=== PATIENT | male | born 1990 | race Hispanic/Latino ===

== ENCOUNTER 2020-09-10 13:18 | Emergency (ER) | payer OTHER ==
[~2020-09-10] VITALS: Ht 170.2 cm; Wt 96.1 kg
[2020-09-10] MEDS ORDERED: ALBU20IN (13:47)
[2020-09-10 15:56] VITALS: O2SAT 98
[2020-09-10 16:08] LABS: BASO # 0.1 10^3/uL (0.0-0.2); BASO % 0.7 % (0.0-1.0); EOS # 0.2 10^3/uL (0.0-0.5); EOS % 3.4 % (0.0-3.0); HEMATOCRIT 46.8 % (42.0-52.0); HEMOGLOBIN 16.5 g/dl (13.5-17.5); LYMPH # 2.5 10^3/uL (1.5-5.0); MEAN CORPUSCULAR HEMOGLOBIN 29.8 pg (27.0-33.0); MEAN CORPUSCULAR HGB CONC 35.3 g/dl (32.0-36.5); MEAN CORPUSCULAR VOLUME 84.6 fl (80.0-96.0); MONO # 0.4 10^3/uL (0.0-0.8); MONO % 6.1 % (2.0-8.0); NEUTROPHILS # 3.6 10^3/uL (1.5-8.5); NEUTROPHILS % 52.5 % (36.0-66.0); PLATELET COUNT, AUTOMATED 315 10^3/uL (150-450); RED BLOOD COUNT 5.53 10^6/uL (4.30-6.10); WHITE BLOOD COUNT 6.8 10^3/uL (4.0-10.0)
[2020-09-10] MEDS ORDERED: ISOVUE-370 76% 100ML VIAL As Ordered ONE (16:26)
[2020-09-10 16:38] LABS: C REACTIVE PROTEIN QUANTITATIV < 0.30 MG/DL (0.00-0.30); CK-MB VALUE MASS < 1.0 NG/ML (<3.6); CPK CREATINE PHOSPHOKINASE 456 U/L (39-308); MB/CK RELATIVE INDEX 0.22 (< OR =4); TROPONIN I < 0.02 NG/ML (< 0.10)
--- NOTE | 2020-09-10 16:50 | REP ---
INDICATION: SOB since covid apr 2020 COMPARISON: None. TECHNIQUE: Axial contrast enhanced images from the thoracic inlet to the upper abdomen using pulmonary embolus technique with multiplanar re-formations. 75 ml Isovue 370 intravenous contrast material administered without complication. This CT examination was performed using the following dose reduction techniques: Automated exposure control, adjustment of mA and/or kv according to the patient's size, and use of iterative reconstruction technique. FINDINGS: Satisfactory enhancement of the pulmonary vasculature is achieved and no filling defects are identified to suggest pulmonary embolus. Further evaluation of the mediastinum demonstrates normal thoracic aorta, heart and pericardium. The bilateral lung otero are well aerated and clear without consolidation pleural effusion or pneumothorax. Tracheobronchial tree is patent. No nodule or mass lesion is identified. No adenopathy noted. Surrounding musculoskeletal structures intact IMPRESSION: No evidence for pulmonary embolus. No acute mediastinal or pleural parenchymal process. <Electronically signed by Abdiel Smith > 09/10/20 [id number]
[2020-09-10 16:53] LABS: ERYTHROCYTE SEDIMENTATION RATE 1 mm/hr (0-15)
[2020-09-10 19:18] LABS: NT-PRO BNP 23 PG/ML (<125)
[2020-09-10 19:36] VITALS: BP 132/71
--- NOTE | 2020-09-11 05:47 | ECGEPIP ---
[facility] - ED Test Date: 2020-09-10 Pat Name: DAMARIS GAN Department: Room: - Gender: Male Tagman: HOLLY : 1990 Requested By: ALEXANDER Obregon PA-C Order Number: [id number] Reading MD: Joe Higgins Measurements Intervals [place] Rate: 82 P: 53 LA: 184 QRS: 61 QRSD: 96 T: 23 QT: 344 QTc: 401 Interpretive Statements Normal sinus rhythm with borderline 1st degree AV block POOR R WAVE PROGRESSION Incomplete right bundle branch block NONSPECIFIC T WAVE ABNORMALITY(S) NO PRIORS FOR COMPARISON Electronically Signed on 09-11-2020 5:46:55 EDT by Joe Higgins
== END 2020-09-10 19:38 | disposition home or self-care (01) ==
LOC: M ED 13:18
DX: R06.02 Shortness of breath (principal); R94.31 Abnormal electrocardiogram [ECG] [EKG]; I45.19 Other right bundle-branch block; Z86.16 Personal history of COVID-19; Z87.09 Personal history of other diseases of the respiratory system; Z87.891 Personal history of nicotine dependence
CPT/HCPCS: 36415; 71275; 80047; 82550; 82553; 83880; 84484; 85025; 85652; 86140; 93005; 99284; Q9967

== ENCOUNTER → 2020-11-19 | Outpatient (CLI) | payer OTHER ==
[~2020-11-19] MED LIST: ALBU20IN
--- NOTE | 2020-11-19 11:16 | PFTRPT ---
Height: 67.00 Inches Weight: 207.00 Lbs BSA: 2.05 Diagnosis: R06.02 DATE: 11/19/2020 ORDERING PHYSICIAN: SLY Hoffman Pre and post bronchodilator studies have excellent technical quality. Forced vital capacity is normal. FEV1 is in proportion. Obstructive index is therefore normal. Expiratory limit of the flow-volume loop is normal. No significant bronchodilator response is identified. Total lung capacity is normal. Residual volume is in proportion. Diffusing capacity is normal. No hemoglobin available for correction. Airway resistance and conductance are normal. IMPRESSION: Normal study. MTDD
== END ==
LOC: M CARPUL 10:50
PROVIDERS: ATTEND Physician Assistant
DX: R06.02 Shortness of breath (principal)